=== PATIENT | male | born 2000 | race African-American/Black ===

== ENCOUNTER 2020-09-10 09:04 | Emergency (ER) | payer MEDICAID, OTHER ==
[~2020-09-10] VITALS: Ht 185.4 cm; Wt 81.6 kg
[2020-09-10 09:09] VITALS: BP 129/94
[2020-09-10] MEDS ORDERED: cefTRIAXone SOD 1,000 MG VL IM ONE (10:30)
== END 2020-09-10 10:49 | disposition home or self-care (01) ==
LOC: ER 09:04
DX: S31.21XA Laceration without foreign body of penis, initial encounter (principal); B37.42 Candidal balanitis; W26.8XXA Contact with other sharp object(s), not elsewhere classified, initial encounter; Y93.89 Activity, other specified; Y92.89 Other specified places as the place of occurrence of the external cause; Y99.8 Other external cause status
CPT/HCPCS: 96372; 99283; J0696